=== PATIENT | male | born 1995 | race Caucasian/White ===

== ENCOUNTER 2020-01-10 13:33 | Emergency (ER) | payer SELFPAY ==
[2020-01-10] MEDS ORDERED: SODIUM CHLORIDE 0.9% (FLUSH) 10 ML SYG IV PRN (14:05)
[2020-01-10] MEDS ORDERED: SODIUM CHLORIDE 0.9% 1000ML 1,000 ML IVS ONE (14:06)
[2020-01-10] MEDS ORDERED: methylPREDNISolone SODIUM SUC 125 MG/2 ML VIAL IV ONE (14:06)
--- NOTE | 2020-01-10 14:07 | ED.PDOC ---
History of Present Illness - General Chief Complaint: General Time Seen by Provider: 01/10/20 14:05 Source: patient - History of Present Illness Initial Comments: 24 yo male who presents with cc of rash and itching. Reports onset 1 week ago with worsening. Believes he may be allergic to Tide detergent as sx's began when he switched detergents and has prior known hx of allergy to Tide. Reports has been having intermittent rash and hives to tailbone area. For the past 2 nights he also reports new onset redness, itching, and swelling to BL hands. Also developed rash to BL feet yesterday. Sx's come and go, worse at night, no medications taken for relief. Cannot think of any other new exposures. Denies any mouth/tongue/throat swelling, chest pain, dyspnea, fevers, chills, abd pain, n/v/d. Smokes cigarettes daily. Hx of alcohol abuse but states not currently drinking. Denies illicit substance usage but reports hx of frequent marijuana use in the past. Additionally he complains of intermittent burning to the tip of the penis only with urination. Occurring with most episodes of urination for the past week. Denies any penile rash or discharge, testicular swelling/pain. Pt is sexually active and concerned for possible STI - denies any known hx of this. Home Medications: Ambulatory Orders Ciprofloxacin HCl [Ciprofloxacin Hydrochlori] 500 mg PO BID 14 Days #28 tab 01/10/20 Prednisone 60 mg PO DAILY 4 Days #12 tab 01/10/20 Review of Systems - Review of Systems Review of Systems: 01/10/20 14:17 as per HPI All other Systems: Reviewed and Negative Family Medical History - Family History Father Family History: Unknown Living Status: Unknown Physical Exam - Physical Exam General Appearance: Alert, Comfortable, No apparent distress, Other - appears very thin and unkempt Eye Exam: bilateral normal Ears, Nose, Throat: hearing grossly normal, other - missing numerous teeth Neck: non-tender, full range of motion, supple, normal inspection Respiratory: lungs clear, normal breath sounds, no respiratory distress, no accessory muscle use Cardiovascular/Chest: normal peripheral pulses, regular rate, rhythm, no edema, no gallop, no JVD, no murmur Peripheral Pulses: radial,right: 2+, radial,left: 2+ Gastrointestinal/Abdominal: non tender, soft, no organomegaly Back Exam: normal inspection, no CVA tenderness, no vertebral tenderness Extremity: normal range of motion, non-tender, normal inspection, no pedal edema, no calf tenderness 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 To Right foot also with mild erythematous rash Progress - Progress Progress: 01/10/20 14:19 Acute rash -suspect likely allergic contact dermatitis most likely. Consider also food allergy dermatitis/acute urticaria, illicit substance usage, other. No evidence of emergent etiology such as anaphylaxis present. -1 L NS bolus, Solumedrol 80 mg IV - likely send home on prednisone 60 mg daily x4 days to prevent recurrence. Advised to change back to prior detergent. Avoid any other possible allergens. Make log of ingested food/drink if sx's flare up again. If recurrent issue, may need outpatient network/telecom engineer referral Dysuria -consider UTI vs STI most likely -penile/genital exam unremarkable, no discharge noted -obtain UA - will likely treat empirically for GC/chlamydia, consider Abx for UTI pending UA 01/10/20 15:29 -UA reveals >50 WBC, 2+ bacteria, large leuk esterase - c/w UTI. Urine GC/chlamydia pending (send-out). -Pt has remained stable. Reports itching improved with ED treatment. Discussed findings and dx of UTI. Given concern for STI, will treat empirically in ED wit h Rocephin 1 g IM & Azithromycin 1 g PO to cover for GC & chlamydia. For UTI, will treat with cipro 500 mg PO BID which will also cover for possible acute prostatitis. For allergic contact dermatitis, will Rx prednisone 60 mg daily x4 days. Pt will need to f/u closely with PCP for repeat evaluation of these issues. -dc to home in good condition, return warnings discussed Jose Alejandro Lea MD Billing #[id number] 01/10/20 14:05 IV Care:Saline Lock per Protoc QSHIFT Telemetry .ONCE Sodium Chloride 0.9% (Flush) [Saline Flush Syringe] 10 ml IV PRN PRN 01/10/20 14:06 GC CHLAMYDIA RNA,TMA Stat 01/10/20 14:45 URINE CULTURE W/COLONY COUNT Stat Laboratory Results - last 24 hr 01/10/20 14:45 Urine Color Yellow Urine Appearance Cloudy Urine pH 7.0 Ur Specific [place] 1.020 Urine Protein Trace Urine Glucose (UA) Negative Urine Ketones Negative Urine Blood Trace-intact H Urine Nitrite Negative Urine Bilirubin Negative Urine Urobilinogen 1.0 Ur Leukocyte Esterase Large H Urine RBC 3-5 H Urine WBC >50 H Ur Epithelial Cells 1-3 Urine Bacteria 2+ H Departure - Departure Clinical Impression: Allergic dermatitis UTI (urinary tract infection) Qualifiers: Urinary tract infection type: acute cystitis Hematuria presence: without hematuria Qualified Code(s): N30.00 - Acute cystitis without hematuria Time of Disposition: 15:04 Disposition: Discharge to Home or Self Care Condition: Good Departure Forms: ED Discharge - Pt. Copy, Patient Portal Self Enrollment Instructions: Contact Dermatitis (DC), Hives (DC), Urinary Tract Infection, Adult (DC) Diet: resume usual diet Activity: increase activity as tolerated Prescriptions: Ciprofloxacin HCl [Ciprofloxacin Hydrochlori] 500 mg PO BID 14 Days #28 tab Prednisone 60 mg PO DAILY 4 Days #12 tab Home Medications: Ambulatory Orders Ciprofloxacin HCl [Ciprofloxacin Hydrochlori] 500 mg PO BID 14 Days #28 tab 01/10/20 Prednisone 60 mg PO DAILY 4 Days #12 tab 01/10/20 Additional Instructions: Remain well-hydrated. Take the steroids (prednisone) as directed in order to prevent worsening/recurrence of rash and hives. I advise you switch back to your old detergent and rewash any clothes which were recently washed with the Tide detergent. Avoid any use of illicit substances such as marijuana, meth, cocaine as these can also cause diffuse rashes and itching. You may also take OTC Benadryl 25-50 mg as needed for itching and apply topical OTC Hydrocortisone 1% cream 2-3 times daily to affected areas to limit pain and itching. Avoid scratching which will only worsen the rash. Return if you develop concerning symptoms such as mouth/tongue/throat swelling, shortness of breath, etc... For the UTI, take the antibiotics as directed and finish the full course even if feeling well. Otherwise, follow up with your regular doctor in 1-2 weeks for repeat evaluation or sooner as needed. If the rash or pain with urinations remains a recurrent issue, you may need outpatient referral for allergy testing and urology referral.
[2020-01-10 14:19] VITALS: O2SAT 99
[2020-01-10] MEDS ORDERED: cefTRIAXone SODIUM 1 GM VIAL IM ONE (15:03)
[2020-01-10] MEDS ORDERED: AZITHROMYCIN 250 MG TAB PO ONE (15:03)
[2020-01-10] MEDS ORDERED: LIDOCAINE 1% 2 ML VIAL INJ ONE (15:20)
[2020-01-10 15:53] VITALS: BP 137/70; TEMP 97.1
== END 2020-01-10 15:40 | disposition home or self-care (01) ==
LOC: ER 13:33
DX: L23.9 Allergic contact dermatitis, unspecified cause (principal); N30.00 Acute cystitis without hematuria
CPT/HCPCS: 81001; 87086; A4216; J0696; J2930; J7030; Q0144